=== PATIENT | female | born 1965 | race Caucasian/White ===

== ENCOUNTER 2021-09-03 09:54 | Emergency (ER) | payer OTHER, SELFPAY ==
[2021-09-03 10:02] VITALS: BP 117/69; PULSE 88; RESP 18; TEMP 36.7; O2SAT 97; BMI 25.0
--- NOTE | 2021-09-03 10:12 | ED_ITS ---
HPI - Allergic Reaction General: Chief complaint: Allergic Reaction Stated complaint: Allergic Reaction Time Seen by Provider: 09/03/21 10:07 History of Present Illness: HPI narrative: Patient is a 56-year-old female comes to the ED with allergic reaction. 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 She has had these allergic reactions before when she is around cats and she starts developing a cough and some slight wheezing. Patient lives in [place] and says when she has these flares up in the past she usually gets a prescription for azithromycin and prednisone. She is visiting her mother here in [place] and they have 4 cats. She has been taking Zyrtec but she can feel her allergies symptoms are starting to progress and she wants to get ahead of it. She was up coughing all night last night and feels a little bit of wheezing. Denies any vomiting, or mouth swelling, fevers, nausea/vomiting or any bowel symptoms. Associated symptoms: Deny abdominal pain, nausea or vomiting Review of Systems Const: Denies: fever(s), chills or fatigue Eyes: Denies: change in vision or eye discomfort ENMT: Denies: throat pain, odynophagia, nasal discharge or nasal congestion Card: Denies: chest pain, palpitations, edema, swelling of feet/ankles, d yspnea on exertion or orthopnea Resp: Reports: non-productive cough and wheezing; Denies: dyspnea or productive cough GI: Denies: abdominal pain, nausea, vomiting, diarrhea, constipation or hematochezia : Denies: flank pain, dysuria or hematuria Musc: Denies: neck pain, back pain or extremity swelling Skin/Breast: Denies: rash or new lesions Neuro: Denies: headache(s), numbness in extremities or weakness in extremities All/Imm: Reports: other (coughing and mild wheezing); Denies: throat swelling PFSH ED PFSH: Medical History No pertinent family history Surgical History No pertinent past surgical history Physical Exam Const: COMMON NORMALS: no acute distress, patient oriented x3 and alert GENERAL APPEARANCE: cooperative and comfortable HENMT: COMMON NORMALS: normocephalic HEAD & SCALP: normocephalic MOUTH: Normal oral and palatal mucosa present THROAT: posterior oropharynx normal and uvula midline Eye: GENERAL EYE: appearance normal, both eyes and all related structures Neck/C-Spine: COMMON NORMALS: supple GENERAL: Yes normal visual inspection Resp: COMMON NORMALS: normal respiratory effort, No retractions, No use of accessory muscles and clear to auscultation bilaterally EFFORT & INSPECTION: Yes able to speak in complete sentences, No tachypneic, No respiratory distress and No Actively coughing AUSCULTATION: clear to auscultation bilaterally and no wheezes Cardio: COMMON NORMALS: regular rate, regular rhythm, S1 normal heart sound present, S2 normal heart sound present, No gallops present (Cardio), No clicks present (Cardio), No murmurs present (Cardio) and Peripheral pulses 2+ throughout RATE: regular rate RHYTHM: regular rhythm HEART SOUNDS: S1 normal heart sound present and S2 normal heart sound present PERIPHERAL PULSES: Peripheral pulses 2+ throughout GI: COMMON NORMALS: Normal to inspection, nondistended, normoactive bowel sounds present, Soft to palpation, non-tender and no masses PALPATION: Yes Soft to palpation : COMMON NORMALS: Yes no CVA tenderness BLADDER/KIDNEY EXAM: Yes no CVA tenderness Back/Pelvis: COMMON NORMALS: no CVA tenderness Extremity: COMMON NORMALS: normal to inspection Neuro: COMMON NORMALS: patient oriented x3 and moves all extremities SENSORIUM/ORIENTATION: Yes alert Skin: GENERAL SKIN EXAM: dry skin Course Vital Signs: Vital signs: Vital Signs Temperature 98.1 F 09/03/21 10:02 Pulse Rate 88 09/03/21 10:02 Respiratory Rate 18 09/03/21 10:02 Blood Pressure 117/69 09/03/21 10:02 Pulse Oximetry 97 09/03/21 10:02 MDM - Allergic Reaction Medical Decision Making Patient is a 56-year-old female comes to the ED with an allergic reaction. Patient has an allergy to cats. Patient is from [place] and is visiting her mother who has 4 cats. She has been taking Zyrtec daily here and her mother is to help with her allergies. She has had symptoms like this before when she is around cats and she usually gets a Z-Duane and some prednisone. She can feel her allergy symptoms started to worsen and she has a cough and some light wheezing. Denies any other symptoms. Vitals are stable. Exam is benign and patient has no wheezing or any signs of respiratory distress. Patient was given a dose of Solu-Medrol here in the ED. She was diagnosed with allergic reaction discharged home with a prescription for Z-Duane and prednisone. She was told to follow-up with her PCP in the next 5 to 7 days for reevaluation. Return to ED precautions given. Patient understood and agreed with plan. Discharge Plan Discharge Patient Disposition: Home Clinical Impression: Allergic reaction Qualifiers: Encounter type: initial encounter Qualified Code(s): T78.40XA - Allergy, unspecified, initial encounter Condition: Stable Prescriptions: New azithromycin 250 mg tablet See Rx Instructions .ROUTE .COMPLEX Qty: 6 0RF Rx Instructions: For 250 mg dose pack: take 500 mg today (day 1), then 250 mg for 4 days (days 2-5) methylprednisolone 4 mg tablets,dose pack See Rx Instructions .ROUTE .COMPLEX Qty: 21 0RF Rx Instructions: orally per package directions Discharge Orders: Discharge ED (Routine); Ordered 09/03/21 Ordered By: Te Stevens Discharge Diet: Regular Discharge Activity: Increase activity as tolerated Patient Instructions: Allergic Reaction Activity Restrictions/Additional Instructions: Follow-up with medical provider as directed in the next 7-10 days for reevaluation. Take medications as prescribed. Continue taking your [id number] Zyrtec as well. You can start taking steroid Dosepak tomorrow since you were given an injection of steroid today in ED. Return to the ER or your medical provider if condition worsens. Please read and understand discharge instructions. Thank you for choosing [facility] for your healthcare needs today. Please realize this is an emergency room and that we are providing you with a medical screening exam and this may not be complete and all inclusive of all the testing and or work up that you may need to determine your ailment or severity of your illness. It is very important that you follow up as instructed or that you return to the Emergency Department should you have concerns or if your condition changes or worsens in any way. Coding Level of Care Code ED Trend Investigator for Paty Blackman Exam Comprehensive
== END 2021-09-03 10:27 | disposition home or self-care (01) ==
PROVIDERS: Emergency Provider Physician Assistant
DX: T78.40XA Allergy, unspecified, initial encounter (principal)
CPT/HCPCS: 96372; 99282; J2930